=== PATIENT | male | born 1975 | race Caucasian/White ===

== ENCOUNTER 2016-05-06 06:41 | Inpatient (IN) | payer OTHER ==
[2016-04-29 08:38] VITALS: Ht 167.6 cm; Wt 100.7 kg
[~2016-05-06] VITALS: Ht 167.6 cm; Wt 100.7 kg
[2016-05-06] VITALS (16 sets, daily range): BP systolic 121–154; RESP 15–20; TEMP 97.4–99.2
[2016-05-06] MEDS ORDERED: CEFAZOLIN 2,000 MG in SODIUM CHLORIDE 0.9% 100 ML IV ONE (06:45)
[2016-05-06] MEDS ORDERED: GLYCOPYRROLATE 0.2 MG/ML VIAL IV ONE ×2 (06:55→14:15)
[2016-05-06] MEDS ORDERED: LACT RINGERS 1,000 ML IV SCH (06:55)
[2016-05-06] MEDS ORDERED: LIDOCAINE 1% BUFFERED 1 ML SYR INTRADERM PRN (06:55)
[2016-05-06] MEDS ORDERED: MIDAZOLAM 2 MG/2 ML INJ IV ONE (06:55)
[2016-05-06] MEDS ORDERED: BUPIVACA/EPI 0.5% 50ML NERVEBLOCK ONE (07:47)
[2016-05-06] MEDS ORDERED: THROMBIN 5000 UNIT KIT TOPICAL ONE (07:47)
[2016-05-06] MEDS ORDERED: BACITRACIN 50,000 UNITS INJ IRRIG ONE (07:47)
[2016-05-06] MEDS ORDERED: GELATIN SPONGE 12 CM2 TOPICAL ONE (07:47)
[2016-05-06] MEDS ORDERED: DILAUDID 1 MG/ML AMP IV PRN (08:35)
[2016-05-06] MEDS ORDERED: OXYCODONE 5 MG TAB PO PRN (08:35)
[2016-05-06] MEDS ORDERED: MORPHINE 4 MG/ML SYR IV PRN ×2 (08:35→10:50)
[2016-05-06] MEDS ORDERED: MORPHINE 2 MG/ML SYR IV PRN ×2 (08:35→10:50)
[2016-05-06] MEDS ORDERED: ONDANSETRON 4 MG VIAL IV PRN ×2 (08:35→10:50)
[2016-05-06] MEDS ORDERED: MEPERIDINE 25 MG/ML IV PRN (08:35)
[2016-05-06] MEDS ORDERED: OXYCODONE/APAP 5/325 TAB PO PRN (10:50)
[2016-05-06] MEDS ORDERED: SODIUM CHLORIDE 0.9% 1,000 ML IV SCH (10:50)
[2016-05-06] MEDS ORDERED: CHLORASEPTIC 180 ML BTL PO PRN (10:50)
[2016-05-06] MEDS ORDERED: PROPOFOL 20 ML VIAL IV ONE (14:15)
[2016-05-06] MEDS ORDERED: FENTANYL 100 MCG/2 ML AMP IV ONE (14:15)
[2016-05-06] MEDS ORDERED: ONDANSETRON 4 MG VIAL IV PUSH ONE (14:15)
[2016-05-06] MEDS ORDERED: LIDOCAINE 2% SYR 5 ML IV ONE (14:15)
[2016-05-06] MEDS ORDERED: ROCURONIUM 50 MG VIAL IV ONE (14:15)
[2016-05-06] MEDS ORDERED: NEOSTIGMINE 10 MG/10 ML VIAL IV ONE (14:15)
[2016-05-06] MEDS ORDERED: SUCCINYLCHOLINE 20 MG/ML VL IV ONE (14:15)
[2016-05-06] MEDS ORDERED: ACETAMINOPHEN 1,000 MG/100 ML IV ONE (14:15)
[2016-05-06] MEDS ORDERED: DILAUDID 1 MG/ML AMP IV ONE (14:15)
[2016-05-06] MEDS: CEFAZOLIN 2,000 MG in SODIUM CHLORIDE 0.9% 100 ML IV SCH ×2 (15:58→23:50)
[2016-05-06] MEDS: DOCUSATE SOD 100 MG CAP PO SCH (20:07)
[2016-05-06] MEDS: OXYCODONE/APAP 5/325 TAB PO PRN ×2 (20:21→23:05)
[2016-05-07 03:48] VITALS: BP_SYST 152; RESP 18; TEMP 98.6
[2016-05-07 07:32] VITALS: BP_SYST 137; RESP 16; TEMP 97.6
[2016-05-07 07:44] VITALS: BP_SYST 137; RESP 16; TEMP 97.6
[2016-05-07] MEDS: CEFAZOLIN 2,000 MG in SODIUM CHLORIDE 0.9% 100 ML IV SCH (07:45)
[2016-05-07] MEDS: DOCUSATE SOD 100 MG CAP PO SCH (07:45)
[2016-05-07] MEDS: OXYCODONE/APAP 5/325 TAB PO PRN (07:46)
== END 2016-05-07 11:39 | disposition home or self-care (01) | DRG 472 ==
LOC: ENRESERVDT → ENRESERVTM → SDS 06:41 → 5THE 11:49
PROVIDERS: ADMIT Neurological Surgery; ATTEND Neurological Surgery
PROC: 00NW0ZZ Release Cervical Spinal Cord, Open Approach (ICD-10-PCS; 2016-05-06)
PROC: 0RG10K0 Fusion of Cervical Vertebral Joint with Nonautologous Tissue Substitute, Anterior Approach, Anterior Column, Open Approach (ICD-10-PCS; principal; 2016-05-06 08:33)
DX: M48.02 Spinal stenosis, cervical region (principal); G95.89 Other specified diseases of spinal cord
CPT/HCPCS: 76001